=== PATIENT | male | born 1955 | race Caucasian/White ===

== ENCOUNTER 2021-04-09 08:14 | Outpatient (CLI) | payer OTHER, SELFPAY ==
[2021-04-09 20:31] LABS: Hematocrit 42.8 % (42.0-52.0); Hemoglobin 14.3 g/dL (14.0-18.0); Mean Corpuscular HGB Conc 33.4 g/dl (32-36); Mean Corpuscular Hemoglobin 28.7 pg (26-34); Mean Corpuscular Volume 85.8 fl (80-100); Platelet Count Result 186 k/mm3 (150-375); Red Blood Count 4.99 M/mm3 (4.6-6.20); Red Cell Distribution Width 13.7 % (11.5-14.5); White Blood Count 7.7 K/mm3 (4.5-10.0)
[2021-04-09 20:39] LABS: Alanine Aminotransferase 25 U/L (4-50); Albumin Level 4.2 g/dL (3.5-5.1); Alkaline Phosphatase 85 U/L (38-126); Anion Gap 9 mmol/L (8-16); Aspartate Amino Transferase 26 U/L (17-59); Bilirubin,Total 0.4 mg/dL (0.2-1.3); Blood Urea Nitrogen 23 mg/dL (9-20); Calcium 9.2 mg/dL (8.4-10.2); Carbon Dioxide 25 mmol/L (22-30); Chloride 106 mmol/L (98-107); Estimated Glomerular Filt Rate > 60; Glucose 111 mg/dL (65-110); Potassium 4.4 mmol/L (3.4-5.0); Sodium 140 mmol/L (137-145)
[2021-04-09 21:04] LABS: Prostate Specific Antigen 0.7 ng/mL (< OR = 4.0)
[2021-04-15 01:35] LABS: Testosterone Free 82.1 pg/mL (35.0-155.0); Testosterone Total 423 ng/dL (250-1100)
== END 2021-04-09 08:15 | disposition home or self-care (01) ==
LOC: ANHBWCLAB 08:16
PROVIDERS: PCP Family Medicine; Visit Provider Family Medicine
DX: Z12.5 Encounter for screening for malignant neoplasm of prostate (principal); R30.0 Dysuria; M19.90 Unspecified osteoarthritis, unspecified site; E78.5 Hyperlipidemia, unspecified; N40.0 Benign prostatic hyperplasia without lower urinary tract symptoms; I42.1 Obstructive hypertrophic cardiomyopathy; K21.9 Gastro-esophageal reflux disease without esophagitis
CPT/HCPCS: 36415; 80053; 84153; 84402; 84403; 84443; 85027; G0103

== ENCOUNTER → 2021-08-18 07:52 | Outpatient (CLI) | payer OTHER, SELFPAY ==
[2021-08-18 17:21] LABS: SARS-CoV-2 RNA PCR Negative
== END ==
PROVIDERS: PCP Family Medicine; Visit Provider Family Medicine
DX: Z20.822 Contact with and (suspected) exposure to COVID-19 (principal); R53.83 Other fatigue
CPT/HCPCS: C9803; U0003; U0005

== ENCOUNTER 2021-08-18 08:35 | Outpatient (CLI) | payer OTHER, SELFPAY ==
[2021-08-18 19:25] LABS: Hematocrit 45.5 % (42.0-52.0); Hemoglobin 15.1 g/dL (14.0-18.0); Mean Corpuscular HGB Conc 33.2 g/dl (32-36); Mean Corpuscular Hemoglobin 28.4 pg (26-34); Mean Corpuscular Volume 85.5 fl (80-100); Mean Platelet Volume 9.9 fl (7.4-10.4); Platelet Count Result 203 k/mm3 (150-375); Red Blood Count 5.32 M/mm3 (4.6-6.20); Red Cell Distribution Width 13.2 % (11.5-14.5); White Blood Count 7.5 K/mm3 (4.5-10.0)
[2021-08-18 19:46] LABS: Add Urine Microscopic? NO; Appearance Urine Clear (Clear); Bilirubin Urine Negative (Negative); Blood Urine Negative (Negative); Color Urine Yellow (Yellow); Glucose Urine UA Negative (Negative); Ketones Urine Negative (Negative); Leukocyte Esterase Ur Negative LEU/UL (NEGATIVE); Nitrate Urine Negative (Negative); Protein Urine Negative (Negative); Specific Grav Ur 1.027 (1.001-1.035); Urobilinogen Urine Negative mg/dL (<2.0)
[2021-08-18 19:54] LABS: Erythrocyte Sedimentation Rate 1 mm/hr (0-20)
[2021-08-18 19:56] LABS: CRP < 0.5 mg/dL (<1.0)
[2021-08-21 11:26] LABS: Testosterone Total 472 ng/dL (250-1100)
== END 2021-08-18 08:36 | disposition home or self-care (01) ==
PROVIDERS: PCP Family Medicine; Visit Provider Family Medicine
DX: R53.83 Other fatigue (principal)
CPT/HCPCS: 36415; 81003; 82728; 84403; 84443; 85027; 85652; 86140; C9803; U0003; U0005

== ENCOUNTER 2021-09-09 10:34 | Outpatient (CLI) | payer OTHER, SELFPAY ==
--- NOTE | ~2021-09-09 | XR_ITS ---
XR chest 2V DATE: 09/09/2021 10:46 INDICATION: Fatigue TECHNIQUE: PA and lateral views COMPARISON: None FINDINGS: Normal heart size. No hilar or mediastinal enlargement. No pulmonary infiltrate or consolid ation, pleural effusion or pulmonary vascular congestion or pneumothorax. Diffuse idiopathic skeletal hyperostosis of the thoracic spine. IMPRESSION: No active cardiopulmonary disease Reviewed, dictated and finalized at location A. [facility] FLOOR TECH
[2021-09-09 19:21] LABS: Vitamin D 25 Hydroxy 34.7 ng/mL
[2021-09-09 19:34] LABS: Hepatitis B Surface Antigen Negative (Negative)
[2021-09-09 19:39] LABS: HAV RESULT Negative (Negative); Hepatitis B Core IgM Result Negative (Negative)
[2021-09-09 19:51] LABS: Hepatitis C Virus Antibody Negative (Negative)
[2021-09-09 20:06] LABS: Folic Acid 10.2 ng/mL (2.76->20)
[2021-09-10 11:40] LABS: Rapid Plasma Reagin Non-Reactive (NonReactive)
== END 2021-09-09 10:35 | disposition home or self-care (01) ==
LOC: ANHBWCLAB 10:35
PROVIDERS: PCP Family Medicine; Visit Provider Family Medicine
DX: R53.83 Other fatigue (principal)
CPT/HCPCS: 36415; 71046; 80074; 82306; 82607; 82746; 86592

== ENCOUNTER 2021-09-09 14:20 | Emergency (ER) | payer OTHER, SELFPAY ==
--- NOTE | 2021-09-09 14:25 | PC.NURSE ---
pt taken directly to room 18 due to large amount of active bleeding from right side of his face. direct pressure applied and edp informed.
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
[2021-09-09 15:04] VITALS: BP 154/84; PULSE 111; RESP 16; TEMP 36.8; O2SAT 95
[2021-09-09] MEDS: LIDOCAINE/EPINEPHRINE 0.5%/1:200,000 50 ML VIAL (15:14)
[2021-09-09] MEDS: LIDOCAINE HCL 1% LOCAL INJ 20 ML VIAL (15:14)
[2021-09-09 16:15] VITALS: BP 124/74; PULSE 68; RESP 14; TEMP 36.9; O2SAT 98
--- NOTE | 2021-09-09 16:20 | PC.NURSE ---
Patient discharged to home in stable condition with all personal belongings and discharge instructions. Patient to follow up with PCP and plastic surgeon. Patient verbalizes understanding. Spouse at bedside.
== END 2021-09-09 16:21 | disposition home or self-care (01) ==
LOC: ANHED 16:07
PROVIDERS: Emergency Provider Emergency Medicine; PCP Family Medicine
DX: S01.81XA Laceration without foreign body of other part of head, initial encounter (principal); E78.5 Hyperlipidemia, unspecified; I42.1 Obstructive hypertrophic cardiomyopathy; K21.9 Gastro-esophageal reflux disease without esophagitis; N40.0 Benign prostatic hyperplasia without lower urinary tract symptoms; M19.90 Unspecified osteoarthritis, unspecified site; Z79.82 Long term (current) use of aspirin; W31.89XA Contact with other specified machinery, initial encounter
CPT/HCPCS: 12013; 36415; 71046; 80074; 82306; 82607; 82746; 86592; 99283

== ENCOUNTER 2022-06-16 10:39 | Outpatient (CLI) | payer OTHER, SELFPAY ==
--- NOTE | ~2022-06-16 | XR_ITS ---
XR shoulder LT min 2V DATE: 06/16/2022 12:20 INDICATION: Left shoulder pain TECHNIQUE: 4 views COMPARISON: None FINDINGS: There is mild to moderate degenerative change at the left acromioclavicular joint Minimal periarticular spurring is noted at the left glenohumeral joint. No fracture or dislocation, periosteal reaction or bone destruction or abnormal soft tissue calcifica tion is detected. IMPRESSION: Mild glenohumeral osteoarthritis Mild to moderate degenerative change at the left acromioclavicular joint Reviewed, dictated and finalized at location B. [facility]
[2022-06-16 18:48] LABS: Basophils Absolute Auto 0.1 K/mm3 (0.0-0.1); Basophils Percent Auto 0.7 % (0.2-1.2); Eosinophils Absolute Auto 0.1 K/mm3 (0-0.3); Eosinophils Percent Auto 1.2 % (0-4.4); Hematocrit 44.7 % (42.0-52.0); Hemoglobin 15.1 g/dL (14.0-18.0); Immature Granulocyte Absolute 0.02 K/mm3 (0.00-0.031); Immature Granulocyte Percent A 0.3 % (0-0.5); Lymphocytes Absolute Auto 2.37 K/mm3 (0.9-3.2); Lymphocytes Percent Auto 31.3 % (18.3-44.2); Mean Corpuscular HGB Conc 33.8 g/dl (32-36); Mean Corpuscular Hemoglobin 28.8 pg (26-34); Mean Corpuscular Volume 85.1 fl (80-100); Mean Platelet Volume 10.4 fl (7.4-10.4); Monocytes Absolute Auto 0.5 K/mm3 (0.1-0.6); Neutrophils Absolute Auto 4.5 K/mm3 (1.3-6.7); Neutrophils Percent Auto 59.5 % (45.5-73.1); Platelet Count Result 185 k/mm3 (150-375); Red Blood Count 5.25 M/mm3 (4.6-6.20); Red Cell Distribution Width 13.4 % (11.5-14.5); White Blood Count 7.6 K/mm3 (4.5-10.0)
[2022-06-16 19:54] LABS: Alanine Aminotransferase 43 U/L (6-50); Albumin Level 4.3 g/dL (3.5-5.1); Alkaline Phosphatase 78 U/L (38-126); Anion Gap 6 mmol/L (8-16); Aspartate Amino Transferase 65 U/L (17-59); Bilirubin,Total 0.8 mg/dL (0.2-1.3); Blood Urea Nitrogen 20 mg/dL (9-20); Calcium 9.1 mg/dL (8.4-10.2); Carbon Dioxide 29 mmol/L (22-30); Chloride 105 mmol/L (98-107); Cholesterol 164 mg/dL (0-200); Estimated Glomerular Filt Rate > 60; Glucose 104 mg/dL (65-110); HDL Direct 37 mg/dL; Potassium 4.3 mmol/L (3.4-5.0); Sodium 140 mmol/L (137-145); Triglycerides 133 mg/dL (<150)
[2022-06-16 20:06] LABS: LDL Cholesterol Direct 88 mg/dL
== END 2022-06-16 10:40 | disposition home or self-care (01) ==
LOC: ANHBWCLAB 10:40
PROVIDERS: PCP Family Medicine; Visit Provider Family Medicine
DX: M19.012 Primary osteoarthritis, left shoulder (principal); I42.1 Obstructive hypertrophic cardiomyopathy; K21.9 Gastro-esophageal reflux disease without esophagitis; N40.0 Benign prostatic hyperplasia without lower urinary tract symptoms; R53.83 Other fatigue
CPT/HCPCS: 36415; 73030; 80053; 80061; 82607; 84443; 85025; 86038

== ENCOUNTER 2022-12-15 10:23 | Outpatient (CLI) | payer MEDICARE, SELFPAY ==
[2022-12-15 21:15] LABS: Basophils Absolute Auto 0.1 K/mm3 (0.0-0.1); Basophils Percent Auto 0.7 % (0.2-1.2); Eosinophils Absolute Auto 0.2 K/mm3 (0-0.3); Eosinophils Percent Auto 2.2 % (0-4.4); Hematocrit 46.9 % (42.0-52.0); Hemoglobin 15.1 g/dL (14.0-18.0); Immature Granulocyte Absolute 0.02 K/mm3 (0.00-0.031); Immature Granulocyte Percent A 0.3 % (0-0.5); Lymphocytes Absolute Auto 2.14 K/mm3 (0.9-3.2); Mean Corpuscular HGB Conc 32.2 g/dl (32-36); Mean Corpuscular Hemoglobin 28.5 pg (26-34); Mean Corpuscular Volume 88.5 fl (80-100); Mean Platelet Volume 10.3 fl (7.4-10.4); Monocytes Absolute Auto 0.5 K/mm3 (0.1-0.6); Monocytes Percent Auto 6.7 % (2.6-8.5); Neutrophils Absolute Auto 3.9 K/mm3 (1.3-6.7); Neutrophils Percent Auto 58.1 % (45.5-73.1); Platelet Count Result 210 k/mm3 (150-375); Red Cell Distribution Width 13.6 % (11.5-14.5); White Blood Count 6.7 K/mm3 (4.5-10.0)
[2022-12-15 21:24] LABS: Alanine Aminotransferase 30 U/L (6-50); Albumin Level 4.2 g/dL (3.5-5.1); Alkaline Phosphatase 72 U/L (38-126); Anion Gap 3 mmol/L (8-16); Aspartate Amino Transferase 55 U/L (17-59); Bilirubin,Total 0.7 mg/dL (0.2-1.3); Blood Urea Nitrogen 22 mg/dL (9-20); Calcium 8.9 mg/dL (8.4-10.2); Carbon Dioxide 31 mmol/L (22-30); Chloride 105 mmol/L (98-107); Cholesterol 137 mg/dL (0-200); Estimated Glomerular Filt Rate > 60; Glucose 96 mg/dL (65-110); HDL Direct 35 mg/dL; Potassium 4.4 mmol/L (3.4-5.0); Sodium 139 mmol/L (137-145); Triglycerides 196 mg/dL (<150)
[2022-12-15 21:35] LABS: LDL Cholesterol Direct 62 mg/dL
[2022-12-15 21:46] LABS: Hepatitis B Surface Antigen Negative (Negative)
[2022-12-15 21:52] LABS: HAV RESULT Negative (Negative); Hepatitis B Core IgM Result Negative (Negative)
[2022-12-15 22:03] LABS: Hepatitis C Virus Antibody Negative (Negative)
== END 2022-12-15 10:24 | disposition home or self-care (01) ==
PROVIDERS: PCP Family Medicine; Visit Provider Nurse Practitioner
DX: R06.02 Shortness of breath (principal); R74.8 Abnormal levels of other serum enzymes; E78.5 Hyperlipidemia, unspecified; R53.83 Other fatigue
CPT/HCPCS: 36415; 80053; 80061; 80074; 85025

== ENCOUNTER 2023-03-23 09:34 | Day surgery (SDC) | payer MEDICARE, SELFPAY ==
[2023-03-23] VITALS (10 sets, daily range): BP systolic 125–150; BP diastolic 64–86; PULSE 60–72; RESP 12–18; TEMP 36.6–37.3; O2SAT 97–100
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
[2023-03-23] MEDS: ceFAZolin 2 GM/D5W 50 ML 2 GM/50 ML BAG IVPB ×2 (10:02→15:51)
[2023-03-23] MEDS: ENTER PT WEIGHT XX (10:05)
[2023-03-23 10:08] LABS: Basophils Percent Auto 0.6 % (0.2-1.2); Eosinophils Absolute Auto 0.1 K/mm3 (0-0.3); Eosinophils Percent Auto 1.8 % (0-4.4); Hemoglobin 14.7 g/dL (14.0-18.0); Immature Granulocyte Absolute 0.02 K/mm3 (0.00-0.031); Immature Granulocyte Percent A 0.3 % (0-0.5); Lymphocytes Percent Auto 33.6 % (18.3-44.2); Mean Corpuscular HGB Conc 33.4 g/dl (32-36); Mean Corpuscular Hemoglobin 28.5 pg (26-34); Mean Corpuscular Volume 85.4 fl (80-100); Mean Platelet Volume 10.2 fl (7.4-10.4); Monocytes Absolute Auto 0.4 K/mm3 (0.1-0.6); Monocytes Percent Auto 5.6 % (2.6-8.5); Neutrophils Absolute Auto 4.2 K/mm3 (1.3-6.7); Neutrophils Percent Auto 58.1 % (45.5-73.1); Platelet Count Result 192 k/mm3 (150-375); Red Blood Count 5.15 M/mm3 (4.6-6.20); Red Cell Distribution Width 13.3 % (11.5-14.5); White Blood Count 7.2 K/mm3 (4.5-10.0)
[2023-03-23 10:12] LABS: Alanine Aminotransferase 27 U/L (6-50); Albumin Level 4.2 g/dL (3.5-5.1); Alkaline Phosphatase 70 U/L (38-126); Anion Gap 7 mmol/L (8-16); Aspartate Amino Transferase 29 U/L (17-59); Bilirubin,Total 0.7 mg/dL (0.2-1.3); Blood Urea Nitrogen 26 mg/dL (9-20); Calcium 8.9 mg/dL (8.4-10.2); Carbon Dioxide 25 mmol/L (22-30); Chloride 106 mmol/L (98-107); Estimated CRCL calculation 94 ml/min; Estimated Glomerular Filt Rate > 60; Glucose 137 mg/dL (65-110); Potassium 4.1 mmol/L (3.4-5.0); Sodium 138 mmol/L (137-145)
--- NOTE | 2023-03-23 10:13 | PC.NURSE ---
[facility].
[2023-03-23 10:15] LABS: Prothrombin Time 13.3 Seconds (11.1-14.7)
[2023-03-23 10:16] LABS: Partial Thromboplastin Time 29.9 SECONDS (22.3-36.8)
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
[2023-03-23] MEDS: SODIUM CHLORIDE 0.9% IV 1,000 ML 125 ML IV CONT (13:14)
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
--- NOTE | 2023-03-23 15:50 | WPDHPUPDATE1 ---
History and Physical Update Update Date/Time: 03/23/23 15:50 History and Physical has been reviewed, including an updated exam of the patient. There are NO changes in the patient's condition. Risks, benefits, and alternatives have been discussed and questions answered. Patient agrees to proceed with procedure.
[2023-03-23] MEDS: BUPivacaine HCL 0.5% PF 30 ML VIAL 10 ML INFILTRATE (17:40)
[2023-03-23] MEDS: LACTATED RINGERS 1,000 ML 30 ML IV CONT ×2 (17:54)
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
--- NOTE | 2023-03-23 19:21 | SUR.PHASEII ---
Report to the Outpatient Waiting Room, entrance under the green pavilion located off [facility], at time 12:00pm on date 03/24/23. Planned Procedure Time: 2:00pm. Time changes happen often and if your time is changed the preop area will call you the afternoon before. - You and your visitor will be asked to self-screen and do not enter if you have any COVID symptoms. - A mask is optional within the hospital at this time. Patients may have clear liquids (water, carbonated beverages, clear teas, apple juice) until 3 hours prior to surgery (11:00am) with a maximum of 20 ounces. - No food from midnight until time of surgery Take the following medications with a SIP of water the morning of surgery: lexapro, metoprolol, pain pill as needed Please no make-up, nail bruneian, hairspray, perfume, deodorant, or body powder the day of surgery. No jewelry (including any body piercings) or valuables the day of surgery, leave them at home. Please take a shower or bath the night before, or the morning of, surgery with an antibacterial soap. Wear comfortable, loose fitting clothing. Children are encouraged to wear pajamas. - Jewelry must be removed prior to entering the operating room. Rings and piercings that are not removed may be cut off. - The hospital will not accept responsibility for valuables. - Please leave all valuables, including medications, at home the day of surgery. If you are going home after surgery, a licensed vibratory pile driver must drive you home. - NO public transportation without another adult if you receive anesthesia. - We recommend that an adult stay with you for 24 hours following discharge. - We also recommend that you do not drive, make important decision, drink alcoholic beverages, or take any drugs that were not prescribed by your health care provider for at least 24 hours after your discharge time.
== END 2023-03-23 19:19 | disposition home or self-care (01) ==
LOC: ANHED 12:10 → ANHSURGERY 13:09
PROVIDERS: Emergency Provider Emergency Medicine; PCP Family Medicine; Visit Provider Plastic Surgery
PROC: (CPT 11012; principal; 2023-03-23 16:00)
DX: S62.617B Displaced fracture of proximal phalanx of left little finger, initial encounter for open fracture (principal); W32.0XXA Accidental handgun discharge, initial encounter; E78.5 Hyperlipidemia, unspecified; K21.9 Gastro-esophageal reflux disease without esophagitis; N40.0 Benign prostatic hyperplasia without lower urinary tract symptoms; Z79.82 Long term (current) use of aspirin; Z79.51 Long term (current) use of inhaled steroids; Z79.891 Long term (current) use of opiate analgesic
CPT/HCPCS: 11012; 36415; 73130; 80053; 85025; 85610; 85730; 96374; 99199; 99285; A9270; C1713; J0690; J2250; J2704; J3010; J7030; J7120

== ENCOUNTER 2023-03-24 07:13 | Day surgery (SDC) | payer MEDICARE, SELFPAY ==
[2023-03-24 08:49] VITALS: BMI 30.8
--- NOTE | 2023-03-24 09:01 | PC.NURSE ---
Report to the Outpatient Waiting Room, entrance under the green pavilion located off [facility], at time 1200 on date 03/24/23. Planned Procedure Time: 1400. Time changes happen often and if your time is changed the preop area will call you the afternoon before. - You and your visitor will be asked to self-screen and do not enter if you have any COVID symptoms. - A mask is optional within the hospital at this time. Patients may have clear liquids (water, carbonated beverages, clear teas, apple juice) until 3 hours prior to surgery with a maximum of 20 ounces. - No food from midnight until time of surgery Take the following medications with a SIP of water the morning of surgery: ANTIBIOTIC, METOPROLOL, ESCITALOPRAM DO NOT STOP ANY OF YOUR OTHER PRESCRIPTION MEDICATIONS PRIOR TO SURGERY ?EXCEPT THE FOLLOWING Medications to discontinue per physician: N/A - SURGERY TODAY Date to take last dose: N/A Please no make-up, nail [place], hairspray, perfume, deodorant, or body powder the day of surgery. No jewelry (including any body piercings) or valuables the day of surgery, leave them at home. Please take a shower or bath the night before, or the morning of, surgery with an antibacterial soap. Wear comfortable, loose fitting clothing. - Jewelry must be removed prior to entering the operating room. Rings and piercings that are not removed may be cut off. - The hospital will not accept responsibility for valuables. - Please leave all valuables, including medications, at home the day of surgery. If you are going home after surgery, a licensed armored car guard and driver must drive you home. - NO public transportation without another adult if you receive anesthesia. - We recommend that an adult stay with you for 24 hours following discharge. - We also recommend that you do not drive, make important decision, drink alcoholic beverages, or take any drugs that were not prescribed by your health care provider for at least 24 hours after your discharge time. Follow any additional instructions given to you from your surgeon. If you or anyone in your household have experienced Covid symptoms in the past week, please notify your surgeon or the nurse liaison at the phone number below for possible testing. Telephone instructions given to PT - GEMA IRBY and asked if any additional questions and then verbalized understanding. Patient advised to call surgeon office or pre surgery nurse liaison [phone] if any additional questions.
--- NOTE | 2023-03-24 09:43 | ECG_ITS ---
Measurements Intervals [place] Rate: 59 P: 66 MI: 179 QRS: 40 QRSD: 110 T: 118 QT: 375 QTc: 374 Interpretive Statements SINUS BRADYCARDIA VOLTAGE CRITERIA FOR LV T WAVE ABNORMALITY IN HIGH LATERAL LEADS- CONSIDER ISCHEMIA ABNORMAL ECG NO PREVIOUS ECG AVAILABLE FOR COMPARISON Electronically Signed On 03-24-2023 13:21:13 CDT by Sean Amin D.O.
--- NOTE | 2023-03-24 11:32 | WPDHPUPDATE1 ---
History and Physical Update Update Date/Time: 03/24/23 11:32 History and Physical has been reviewed, including an updated exam of the patient. There are NO changes in the patient's condition. Risks, benefits, and alternatives have been discussed and questions answered. Patient agrees to proceed with procedure.
[2023-03-24 12:15] VITALS: BP 117/63; PULSE 63; RESP 20; TEMP 37.1; O2SAT 97
[2023-03-24] MEDS: LACTATED RINGERS 1,000 ML 30 ML IV CONT (12:50)
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
--- NOTE | 2023-03-24 13:19 | SUR.PREOP ---
1200-Pt and aware surgeon delays self ~1hr.
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
== END 2023-03-24 16:04 | disposition home or self-care (01) ==
PROVIDERS: PCP Family Medicine; Visit Provider Plastic Surgery
DX: S62.617B Displaced fracture of proximal phalanx of left little finger, initial encounter for open fracture (principal); W32.0XXA Accidental handgun discharge, initial encounter; R94.31 Abnormal electrocardiogram [ECG] [EKG]; Z53.8 Procedure and treatment not carried out for other reasons
CPT/HCPCS: 93005; 99212; G0463; J7120

== ENCOUNTER 2023-03-25 00:07 | Day surgery (SDC) | payer MEDICARE, SELFPAY ==
[2023-03-25] VITALS (8 sets, daily range): BP systolic 110–140; BP diastolic 60–83; PULSE 57–70; RESP 14–20; TEMP 36.5–36.9; O2SAT 93–100; BMI 29.7
--- NOTE | ~2023-03-25 | XR_ITS ---
XR surgery orthopedic Application of external fixation device of the left fifth finger TECHNIQUE: Fluoroscopy used during Application of external fixation device of the left fifth finger performed by [Ramu Pablo MD] on 03/25/2023. 2 minutes 0 seconds with 6 fluoroscopic images c aptured. ]The FINDINGS: Correlate with procedure note. IMPRESSION: Fluoroscopy used during Application of external fixation device of the left fifth finger surrounding comminuted displaced intra-articular fracture proximal aspect of the fifth proximal phala nx.. Reviewed, dictated and finalized at location B. IMPRESSION: Fluoroscopy used during Application of external fixation device of the left fifth finger surrounding comminuted displaced intra-articular fracture proximal aspect of the fifth proximal phalanx..
--- NOTE | 2023-03-25 07:21 | WPDHPUPDATE1 ---
History and Physical Update Update Date/Time: 03/25/23 07:21 History and Physical has been reviewed, including an updated exam of the patient. There are NO changes in the patient's condition. Risks, benefits, and alternatives have been discussed and questions answered. Patient agrees to proceed with procedure.
--- NOTE | 2023-03-25 08:26 | SUR.PREOP ---
0805-Patient states no change since yesterday's arrival.
[2023-03-25] MEDS: LACTATED RINGERS 1,000 ML 30 ML IV CONT ×2 (08:40→11:57)
--- NOTE | 2023-03-25 08:44 | P.PNAN_ITS ---
Anes - Eval Final PreProcedure Day of Procedure 03/25/23 08:44 Patient weight: overweight Heart: regular rate and rhythm Lungs: clear to auscultation Airway: Mallampati scale class II Neurological: alert and oriented Last oral intake: >/= 8 hours ASA classification: III Emergent: no Anesthetic plan: proceed Anesthesia type and monitoring: general ETT and standard monitoring Results Review: All pre-operative results and documents have been reviewed as part of the pre- operative evaluation. Informed Consent: The patient's anesthetic plan and its attendant risks and benefits were discussed with the patient/family/POA. Questions were solicited and answers provided to the satisfaction of the patient/family/POA.
[2023-03-25] MEDS: LIDO 1%/EPINEPHRINE 1:100,000 20 ML VIAL 10 ML INFILTRATE (09:39)
--- NOTE | 2023-03-25 14:01 | SUR.PHASEII ---
1400 pt meets anesthesia protocol for discharge, waiting for ride
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
== END 2023-03-25 16:30 | disposition home or self-care (01) ==
PROVIDERS: PCP Family Medicine; Visit Provider Plastic Surgery
PROC: (CPT 26735; principal; 2023-03-25 10:00)
DX: S62.617B Displaced fracture of proximal phalanx of left little finger, initial encounter for open fracture (principal); W32.0XXA Accidental handgun discharge, initial encounter
CPT/HCPCS: 26735; 20690; 99199; A9270; J0330; J1100; J1170; J2250; J2405; J2704; J3010; J7120

== ENCOUNTER 2023-04-25 11:38 | Outpatient (CLI) | payer MEDICARE, SELFPAY ==
--- NOTE | ~2023-04-25 | XR_ITS ---
XR hand LT min 3V DATE: 04/25/2023 12:11 INDICATION: Open fracture of proximal phalanx of fifth digit TECHNIQUE: 4 views COMPARISON: 03/23/2023 left hand FINDINGS: There are 2 pins each through the midshaft of the fifth metacarpal bone and the distal shaf t and head of the proximal phalanx of the fifth digit, connected to a nafisa. Severely comminuted fracture of the base and proximal shaft of the proximal phalanx of the fifth digi t is again noted, the proximal aspect of the proximal phalanx shattered with prominent displacement o f numerous fracture fragments.. IMPRESSION: Traction pins and nafisa for severely comminuted probably displaced fracture of the proximal shaft and base of the proximal phalanx of the fifth digit Reviewed, dictated and finalized at location B. IMPRESSION: Traction pins and nafisa for severely comminuted probably displaced fr acture of the proximal shaft and base of the proximal phalanx of the fifth digi t
== END 2023-04-25 11:39 | disposition home or self-care (01) ==
PROVIDERS: PCP Family Medicine; Visit Provider Plastic Surgery
DX: S62.617B Displaced fracture of proximal phalanx of left little finger, initial encounter for open fracture (principal); Z96.7 Presence of other bone and tendon implants
CPT/HCPCS: 73130

== ENCOUNTER 2023-05-05 00:11 | Day surgery (SDC) | payer MEDICARE, SELFPAY ==
[2023-05-02 13:47] VITALS: BMI 31.1
--- NOTE | 2023-05-02 13:53 | PC.NURSE ---
Report to the Outpatient Waiting Room, entrance under the green pavilion located off [facility], at time _1000_ on date _[id number]_. Planned Procedure Time: _1200_. Time changes happen often and if your time is changed the preop area will call you the afternoon before. - You and your visitor will be asked to self-screen and do not enter if you have any COVID symptoms. - A mask is optional within the hospital at this time. Patients may have clear liquids (water, carbonated beverages, clear teas, apple juice) until 3 hours prior to surgery with a maximum of 20 ounces. - No food from midnight until time of surgery Take the following medications with a SIP of water the morning of surgery: __Metoprolol DO NOT STOP ANY OF YOUR OTHER PRESCRIPTION MEDICATIONS PRIOR TO SURGERY ?EXCEPT THE FOLLOWING Medications to discontinue per physician ____Centrum silver Date to take last dose__Take no more till after surgery. Please no make-up, nail [place], hairspray, perfume, deodorant, or body powder the day of surgery. No jewelry (including any body piercings) or valuables the day of surgery, leave them at home. Please take a shower or bath the night before, or the morning of, surgery with an antibacterial soap. Wear comfortable, loose fitting clothing. - Jewelry must be removed prior to entering the operating room. Rings and piercings that are not removed may be cut off. - The hospital will not accept responsibility for valuables. - Please leave all valuables, including medications, at home the day of surgery. If you are going home after surgery, a licensed deliver driver must drive you home. - NO public transportation without another adult if you receive anesthesia. - We recommend that an adult stay with you for 24 hours following discharge. - We also recommend that you do not drive, make important decision, drink alcoholic beverages, or take any drugs that were not prescribed by your health care provider for at least 24 hours after your discharge time. Follow any additional instructions given to you from your surgeon. If you or anyone in your household have experienced Covid symptoms in the past week, please notify your surgeon or the nurse liaison at the phone number below for possible testing. Telephone instructions given to _Patient__and asked if any additional questions and then verbalized understanding. Patient advised to call surgeon office or pre surgery nurse liaison [phone] if any additional questions.
--- NOTE | 2023-05-04 13:18 | WPDANESEPPF ---
Anes - Initial Pre Proc Eval Procedure: Operation Date: 05/05/23 12:00 Proposed Procedures p Removal of External Fixator Left Fifth Finger, Possible Percutaneous Pinning - Ramu Pablo MD Date/Time: 05/04/23 13:18 Surgeon: Ramu Pablo MD Pre Op Diagnosis: fracture of the base,proximal shaft lft 5th finger Patient Data Age: 67 Gender: M Height: 1.75 m Weight: 95.5 kg Allergies Allergy/AdvReac Type Severity Reaction Status Date / Time No Known Allergies Allergy Verified 05/05/23 10:15 Home Medications Medication Instructions Recorded Confirmed Type acetaminophen 500 mg capsule 500 mg PO Q6H PRN fever or pain 09/09/21 05/02/23 Rx #30 caps omeprazole magnesium 20 mg 20 mg PO DAILY #90 tabs 12/01/22 05/02/23 Rx tablet,delayed release (Prilosec OTC) finasteride 5 mg tablet 5 mg PO DAILY #90 tabs 12/25/22 05/02/23 Rx escitalopram oxalate 20 mg tablet 20 mg PO DAILY #90 tabs 02/11/23 05/02/23 Rx dfguvlis-mh-uycfe 300 mcg-K 60 1 tablet PO DAILY 03/24/23 05/02/23 History mcg-lycop 600 mcg-lutein 300 mcg tablet (Centrum Silver Men) atorvastatin 20 mg tablet 20 mg PO DAILY #90 tabs 04/25/23 05/02/23 Rx metoprolol succinate 50 mg 50 mg PO DAILY #90 tabs 04/25/23 05/02/23 Rx tablet,extended release 24 hr meloxicam 15 mg tablet See Rx Instructions .Route 05/04/23 Rx .COMPLEX #90 tabs Patient hx anesthesia problems: none Family hx anesthesia problems: none Results Review: All pre-operative results and documents have been reviewed as part of the pre-operative evaluation. [facility] Past Medical History Medical History (Updated 05/04/23 @ 13:19 by Chandler Atkinson DO) Arthritis BPH (benign prostatic hyperplasia) Cardiomyopathy Chronic GERD Dyslipidemia Dysuria Encounter for long-term (current) use of other medications Family history of osteoporosis Fatigue Fatigue Hypercalcemia Hyperlipidemia Hypertension IHSS (idiopathic hypertrophic subaortic stenosis) Preventative health care SOB (shortness of breath) Surgical History Surgical History H/O hernia repair H/O nasal septoplasty History of carpal tunnel release Family History Family History Mother Myocardial infarction Sibling Cancer H/O heart surgery Grandparent Diabetes mellitus Cerebrovascular accident Cancer Grandparent Cancer Mother Acute myocardial infarction Sibling Family history of malignant neoplasm Social History Social History Smoking status: Never smoker Second hand tobacco smoke exposure: No Alcohol intake: current Alcohol use details: COUPLE TIMES A YEAR Substance use: never Substance use type: does not use Lack of Transportation: No Lack of Food: Never True Current Housing: I Have Housing Concerned About Future Housing: No Difficulty Paying Gas/Electric Bills: No Difficulty Paying for Meds: No Currently Unemployed: No Education: Associate Degree Difficulty w/ Childcare or Family Care: No Living arrangements: with family Spiritual care concerns: No Anes - Eval Final PreProcedure Day of Procedure 05/04/23 13:18 Patient weight: obese Heart: regular rate and rhythm Lungs: clear to auscultation Airway: Mallampati scale class II Neurological: alert and oriented Last oral intake: >/= 8 hours ASA classification: III Emergent: no Anesthetic plan: proceed Anesthesia type and monitoring: general GIVS and standard monitoring Results Review: All pre-operative results and documents have been reviewed as part of the pre-operative evaluation. Informed Consent: The patient's anesthetic plan and its attendant risks and benefits were discussed with the patient/family/POA. Questions were solicited and answers provided to the satisfaction of the patient/family/POA.
--- NOTE | ~2023-05-05 | XR_ITS ---
EXAMINATION: XR surgery orthopedic DATE: 05/05/2023 13:46 INDICATION: Ex fix removal and pinning of the right fifth digit TECHNIQUE: 5 fluoroscopic images of the right fifth digit were obtained during procedure performed by Dr. Pablo. Radiologist was not present for the imaging or procedure. The amount of fluoroscopy time used during this procedure was 5.4 minutes. COMPARISON: 04/25/2023 and 03/23/2023 FINDINGS: Again seen is a comminuted fractures at the base of the left fifth proximal phalanx. The previously p laced external fixation at the left fifth metacarpal and distal aspect of the proximal phalanx been r emoved with subtle residual lucent screw tracks. Interval placement of percutaneous fixation pins ext ending from the dorsal aspect of the head of the fifth metacarpal into the diaphysis to the distal he ad of the proximal phalanx. There are some palmar subluxation axis and of the mid to distal aspect of the proximal phalanx relative to the head of the metacarpal. There is persistent displacement of sev eral bone fragments comprising the proximal aspect of the proximal phalanx. No new fractures identifi ed. Again seen is a prominent subarticular lucency at the head of the third metacarpal. Remaining vis ualized bones of the ulnar side of the left hand are unremarkable. IMPRESSION: 1. Fluoroscopy utilized during removal of prior external fixation and placement of new percutaneous p in fixation across the fifth metacarpophalangeal joint with persistent displacement of the fragments of the comminuted fracture proximal portion of the proximal phalanx. See procedure note for further d etail. Reviewed, dictated and finalized at location A. IMPRESSION: 1. Fluoroscopy utilized during removal of prior external fixation and placement of new percutaneous pin fixation across the fifth metacarpophalangeal joint wi th persistent displacement of the fragments of the comminuted fracture proximal portion of the proximal phalanx. See procedure note for further detail.
--- NOTE | 2023-05-05 07:13 | WPDHPUPDATE1 ---
History and Physical Update Update Date/Time: 05/05/23 07:13 History and Physical has been reviewed, including an updated exam of the patient. There are NO changes in the patient's condition. Risks, benefits, and alternatives have been discussed and questions answered. Patient agrees to proceed with procedure.
[2023-05-05 09:49] VITALS: BP 138/80; PULSE 65; RESP 18; TEMP 36.4; O2SAT 96
[2023-05-05] MEDS: LACTATED RINGERS 1,000 ML 30 ML IV CONT (10:11)
[2023-05-05] MEDS: ACETAMINOPHEN 500 MG TABLET 1000 MG PO (11:52)
[2023-05-05] MEDS: ceFAZolin 2 GM/D5W 50 ML 2 GM/50 ML BAG IVPB (11:56)
--- NOTE | 2023-05-05 12:54 | SUR.OPER ---
2 mg of versed checked out of pyxsis for this patient and given to wilson tony TABLE MAKER
[2023-05-05 13:41] VITALS: BP 123/71; PULSE 58; RESP 16; O2SAT 98
--- NOTE | 2023-05-05 13:58 | P.OP_ITS ---
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 Closed internal c-wire fixation. Surgeon Ramu Pablo MD Flask Carrier Veronica Anesthesia MAC and Local Indications Comminuted fracture of the base of proximal phalanx left 5th finger with non- union. Description of Procedure The patient's left 5th finger with the external fixator was marked with his consent in the holding peter. We discussed primary plans and potential secondary plans again. Has at least 25 degree active range of motion the proximal interphalangeal joint, the metacarpophalangeal joint has not moved. There has been no sign of infection. He was taken to the operating room placed supine on the operating table. He had given 2 g of Ancef IV. A was given mild sedation and the extremity was prepped and draped in usual fashion. The site was examined with the C-arm and the fracture comminution noted. The area was infiltrated with 1% lidocaine with epinephrine. Adequate anesthesia to the finger was obtained. The [employer] external fixator was partially removed, taking out the retention bar. X-ray showed instability of the fracture at that point. Alignment of the fragments is not anatomic. Patient was able to cooperate with active flexion and extension and this demonstrated instability of the proximal shaft. Rotation and lateral angulation were not noted. [place] palmar angulation is evident. We discussed with the operating team and the [employer] rep possible options such as opening the finger and applying bone graft material. Malleable fluid material is available as well as chips. It seemed that better approximation of the displaced fragments would not likely be possible. I was concerned the longer term use of the fixator might lead to infectious complications. Did not seem that it was going to provide us with a functional metacarpophalangeal joint. Having discussed this overall problem with the patient several times, I thought he would be best suited to treatment that would lead to a pseudoarthrosis and moderate range of motion. I elected to place the the finger in the best position of reduction I could obtain and apply 0.045 in C wires from the proximal radial base of the proximal phalanx passing up the shaft to the head. We were able to place 2 such C wires. The seemed to provide satisfactory reduction. Expectation for bony union remains low. This did not improve the range of motion potential for the metacarpophalangeal joint. The IP joints remains the same as before. The pins were cut relatively short, external to the skin and caps applied. Final x-rays were obtained to be certain the pins not enter the proximal interphalangeal joint. A small bandage was applied and the patient was discharged from the operating room to the recovery area.. Estimated Blood Loss -10.0 Tourniquet Time 0 Drains No Packing No Pathology None sent Complications No immediate complications Condition Stable Disposition Same day
[2023-05-05 14:10] VITALS: BP 123/71; PULSE 58; RESP 16
[2023-05-05 14:40] VITALS: BP 118/73; PULSE 50; RESP 16
--- NOTE | 2023-05-05 15:00 | SUR.PHASEII ---
Vital signs stable, IV removed. Patient dressed and waiting to order picker/assembler.
[2023-05-05 15:10] VITALS: BP 124/63; PULSE 52; RESP 16
== END 2023-05-05 15:43 | disposition home or self-care (01) ==
PROVIDERS: PCP Family Medicine; Visit Provider Plastic Surgery
PROC: (CPT 26608; principal; 2023-05-05 12:00)
DX: S62.61 Displaced fracture of proximal phalanx of finger (principal); W32.0XXD Accidental handgun discharge, subsequent encounter; I42.9 Cardiomyopathy, unspecified; N40.0 Benign prostatic hyperplasia without lower urinary tract symptoms; E78.5 Hyperlipidemia, unspecified; I10 Essential (primary) hypertension; K21.9 Gastro-esophageal reflux disease without esophagitis; E66.9 Obesity, unspecified; Z68.30 Body mass index [BMI] 30.0-30.9, adult
CPT/HCPCS: 20694; 26727; 99199; A9270; C1713; J0690; J2250; J2704; J3010; J7120

== ENCOUNTER 2023-06-10 13:39 | Outpatient (CLI) | payer MEDICARE, SELFPAY ==
--- NOTE | ~2023-06-10 | XR_ITS ---
EXAMINATION: XR hand LT min 3V DATE: 06/10/2023 14:35 INDICATION: Comminuted fracture of the left fifth proximal phalanx TECHNIQUE: Posteroanterior, oblique and lateral views of the left hand were obtained. COMPARISON: 04/25/2023 and 05/05/2023 FINDINGS: Again seen is a severely comminuted intra-articular fracture of the proximal third of the left fifth proximal phalanx which remains fixed with a pair of percutaneous pins extending across the head and n billy of the fifth metacarpal through the fragment at the base of the proximal phalanx with one pin ter minating at the distal head of the proximal phalanx and the second and across the proximal interphala ngeal joint and the base of the middle phalanx. There appears to be persistent dorsal and ulnar displ acement of a couple fragments at the ulnar and dorsal base of the proximal phalanx with no clearly de fined smooth proximal articular cortex. There appears to be a small amount of callus formation along the ulnar side of the diaphysis of the distal fragment consistent with interval healing. It is unclea r where there is solid bridging between the main proximal and distal fragments. There are couple luce nt screw tracks at the mid diaphysis of the fifth metacarpal and at the mid to distal aspect of the f ifth proximal phalanx related to a previously removed external fixation. No evident osteolysis or inc reased lucency along the fixation pins to suggest loosening or infection. No other fractures identifi ed. Unchanged prominent indolent appearing lucent lesion with thin sclerotic margins at the head of t he third metacarpal. 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 Absent first d istal phalanx which could be developmental or sequela of prior trauma or surgery. There appears to be hypertrophy of one of the condyles at the head of the proximal phalanx which suggests this may be de velopmental. IMPRESSION: 1. Small amount of callus formation along a severely comminuted intra-articular fracture at the proxi mal aspect of the fifth proximal phalanx which is fixed with a pair of percutaneous pins. Reviewed, dictated and finalized at location A. PATIAL INFORMATION TECHNOLOGIST IMPRESSION: 1. Small amount of callus formation along a severely comminuted intra-articular fracture at the proximal aspect of the fifth proximal phalanx which is fixed w ith a pair of percutaneous pins.
== END 2023-06-10 13:40 | disposition home or self-care (01) ==
LOC: ANHIMG 13:46
PROVIDERS: PCP Nurse Practitioner Adult Health; Visit Provider Plastic Surgery
DX: S62.617G Displaced fracture of proximal phalanx of left little finger, subsequent encounter for fracture with delayed healing (principal)
CPT/HCPCS: 73130

== ENCOUNTER 2023-06-14 10:31 | Outpatient (CLI) | payer MEDICARE, SELFPAY ==
[2023-06-14 20:31] LABS: Prostate Specific Antigen 0.3 ng/mL (< OR = 4.0)
[2023-06-14 21:54] LABS: Hemoglobin A1C 5.4 % (<5.7)
== END 2023-06-14 10:32 | disposition home or self-care (01) ==
LOC: ANHBWCLAB 10:32
PROVIDERS: PCP Family Medicine; Visit Provider Family Medicine
DX: Z12.5 Encounter for screening for malignant neoplasm of prostate (principal); N40.0 Benign prostatic hyperplasia without lower urinary tract symptoms; R73.09 Other abnormal glucose; Z79.899 Other long term (current) drug therapy
CPT/HCPCS: 36415; 83036; 84153; G0103

== ENCOUNTER 2023-06-20 12:36 | Outpatient (CLI) | payer MEDICARE, SELFPAY ==
--- NOTE | ~2023-06-20 | XR_ITS ---
EXAMINATION: XR hand LT min 3V DATE: 06/20/2023 12:55 INDICATION: Comminuted fractures of left fifth proximal phalanx. TECHNIQUE: 4 views of left hand were obtained. COMPARISON: Left hand radiographs 06/10/2023, 04/25/2023, 03/23/2023 FINDINGS: Bone alignment is normal. There is amputation of first distal phalanx. There is a comminute d fracture of proximal aspect of fifth proximal phalanx. The main distal fracture fragment demonstrat es impaction and 4 mm palmar displacement and 5 mm radial displacement. There is incongruence of the proximal articular surface. Fixation is seen with a wire through fifth metacarpal and fifth proximal phalanx. Callus formation is noted. There is mild osteoarthritis of first carpometacarpal joint and t hird metacarpophalangeal joint and some of the interphalangeal joints. IMPRESSION: 1. Healing comminuted fracture of fifth proximal phalanx with pin fixation without change. Reviewed, dictated and finalized at location A. MATIC TESTER IMPRESSION: 1. Healing comminuted fracture of fifth proximal phalanx with pin fixation with out change.
== END 2023-06-20 12:37 | disposition home or self-care (01) ==
PROVIDERS: PCP Family Medicine; Visit Provider Plastic Surgery
DX: S62.617G Displaced fracture of proximal phalanx of left little finger, subsequent encounter for fracture with delayed healing (principal)
CPT/HCPCS: 73130

== ENCOUNTER 2023-08-09 11:00 | Outpatient (RCR) | payer MEDICARE, SELFPAY ==
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
--- NOTE | 2023-06-14 10:12 | OTOPPROGNS ---
Assessment and note entered by Quang Stephen, OTR/Aristides, CHT Therapy Hold 06/14/23 OT Clinical Summary Patient called today to report he followed up with Dr. Rodriguez yesterday and there has been some progress with bone growth. He states the pins will be staying in another 2 weeks and that he is to continue to work on his HEP. Therapy will be put on HOLD for now. Will await new orders after pin removal to resume therapy.
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
--- NOTE | 2023-07-20 12:00 | OTOPPROG ---
Assessment and note entered by ASAD Montalvo/Aristides, CHT Progress Update 07/20/23 Diagnosis healing comminuted fracture of the base of the left 5th phalanx Subjective Information Patient presents today for reassessment after 3 weeks of therapy. He reports reduced sensitivity in the finger, improved strength, and improved flexibility. He reports no big changes in his function. ROM measurements today: - MCP flexion 90 deg. - PIP flexion 80 deg. - DIP flexion 45 deg. - Tip to palm improved from 3 cm gap to 1 cm gap actively. Passively is WFL. - Functional extension of the finger improved by 25 degrees at the MCP joint and 10 degrees at the PIP joint. He continues to have an extension lag overall. Assessment OT Clinical Summary Patient presents today for reassessment after 3 weeks of therapy focused on improving functional ROM and strength of the left hand/small finger. He has made excellent progress with ROM - only 1 cm away from touching the palm when making a fist and extension has improved to functional limits. He is compliant with his HEP. Continued skilled OT indicated to progress HEP, therapeutic exercise, manual therapy, and for continued use of modalities. Plan of Care Interventions Therapeutic Exercise,Manual Therapy,Therapeutic Activities,Hot Pack/Cold Pack,Electrical Stimulation,Check Out for Orthotic/Pr,Paraffin OT Services Indicated Yes Treatment Frequency and 1x/week for 3 weeks Duration These treatments will address the objective and functional deficits as defined above. The patient will be advanced safely and appropriately in order for the patient to progress towards his/her prior level of function. Additional exercises will be introduced and as well as a comprehensive home exercise program upon discharge, if needed, ?to ensure carryover of functional gains achieved in the clinic. This treatment plan has been reviewed and agreement upon by the patient.
--- NOTE | 2023-08-09 11:49 | OTOPDC ---
Assessment and note entered by Quang Stephen, ASAD/Aristides, T Discharge Summary 08/09/23 Diagnosis healing comminuted fracture of the base of the left 5th phalanx Subjective Information Patient reports he isn't feeling as much change in his ROM as he did the first month of therapy. He feels like the sensitivity in the finger is also about the same. ROM and captain/airline pilot strength measurements are the same as they were 3 weeks ago. Measurements below - ROM measurements: - MCP flexion 90 deg. - PIP flexion 80 deg. - DIP flexion 45 deg. - Tip to palm 1 cm gap actively. Passively is WFL. - Gross extension: -10 degrees at the MCP joint, - 15 degrees at the PIP joint. Left captain/airline pilot strength 100 lbs. Right captain/airline pilot strength 107 lbs. Assessment OT Clinical Summary Patient reassessed today after participating in 8 OT treatment sessions focused on regaining functional strength and ROM of the left hand, small finger. He presents with no functional limitations. Tiller Man strength is WFL. ROM has remained unchanged since 3 weeks ago. Reviewed his HEP and he is independent with all materials. Discharging OT today. Plan of Care OT Services Indicated No
== END 2023-08-09 13:34 | disposition home or self-care (01) ==
LOC: ANHOT 11:00
PROVIDERS: PCP Family Medicine; Visit Provider Plastic Surgery
DX: Z47.89 Encounter for other orthopedic aftercare (principal)
CPT/HCPCS: 97018; 97110; 97166

== ENCOUNTER 2023-11-29 13:24 | Outpatient (CLI) | payer MEDICARE, SELFPAY | END 2023-11-29 13:25 | disposition home or self-care (01) | LOC: ANHAUDIO 14:02 | PROVIDERS: PCP Family Medicine; Visit Provider Otolaryngology | DX: H90.3 Sensorineural hearing loss, bilateral (principal); H93.13 Tinnitus, bilateral; J31.0 Chronic rhinitis; H69.93 Unspecified Eustachian tube disorder, bilateral; H65.491 Other chronic nonsuppurative otitis media, right ear; Z97.4 Presence of external hearing-aid | CPT/HCPCS: 92557; 92567 ==

== ENCOUNTER 2024-08-27 12:32 | Outpatient (CLI) | payer MEDICARE, SELFPAY ==
--- NOTE | ~2024-08-27 | XR_ITS ---
EXAMINATION: XR abdomen obstructive series DATE: 08/27/2024 12:46 INDICATION: Constipation, unspecified. Epigastric abdominal pain. TECHNIQUE: Upright and supine views of the abdomen on 3 radiographs were obtained. COMPARISON: None. FINDINGS: There are no dilated loops of bowel. There is a moderate volume of stool in the colon. No f ree intraperitoneal gas. Calcifications in the pelvis are likely phleboliths. IMPRESSION: 1. Normal bowel gas pattern. Reviewed, dictated and finalized at location A. ALT TAMPING MACHINE OPERATOR
== END 2024-08-27 12:33 | disposition home or self-care (01) ==
LOC: MICIMG 12:33
PROVIDERS: PCP Family Medicine; Visit Provider Family Medicine
DX: K59.00 Constipation, unspecified (principal)
CPT/HCPCS: 74019

== ENCOUNTER 2024-08-27 13:24 | Outpatient (CLI) | payer MEDICARE, SELFPAY ==
--- OUTSIDE RECORDS SUMMARY | 2024-08-27 16:01 | XMS_ITS | Clinical Summary ---
Author Organization [facility] Address [address] [place] [id number] Care Team Providers Care Barrel Liner Name Role Phone Unavailable Primary Care Provider Unavailabl e Allergies No known active allergies Medications No known medications Family History Medical History Relation Comments Heart Disease Mother Relation Status Comments Father Alive Mother Social History Tobacco Use Types Packs/Day Years Used Date Smoking Tobacco: Never Smokeless Tobacco: Never Alcohol Use Standard Drinks/Week Comments No 0 (1 standard drink = 0.6 oz pur e alcohol) Sex and Gender Information Value Date Recorded Sex Assigned at Not on file Legal Sex Male 3:11 PM CDT Gender Identity Not on file Sexual Orientation Not on file Last Filed Vital Signs Vital Sign Reading Time Taken Comments Blood Pressure - - Pulse - - Temperature - - Respiratory Rate - - Oxygen Saturation - - Inhaled Oxygen Concentration - - Weight 90.7 kg (200 lb) 02/24/2018 12:01 AM CDT Height 177.8 cm (5' 10 ) 02/24/2018 12:01 AM CDT Body Mass Index 28.7 02/24/2018 12:01 AM CDT Plan of Treatment Health Maintenance Due Date Last Done Comments Colorectal Cancer Screening Colonoscopy (10 Years) 1957 Hepatitis C 1975 DTaP, Tdap and Td Vaccines ( 1 - Tdap) 1976 Zoster Vaccines (1 of 2) 2007 Pneumococcal Vaccine: 65+ Ye ars (1 of 1 - PCV) 2022 COVID-19 Vaccine ( - 2023-2 5 season) 2024 Influenza Adult (#1) 2024 RSV Immunization or 60+ Years (1 - 1-dose 75+ series) 2032 Meningococcal B Vaccine Aged Out No l onger eligible based on patient's age to complete this topic Meningococcal Vaccine Aged Out No kim lupe eligible based on patient's age to complete this topic RSV Immunizations Under 20 Months Aged Out No longer eligible based on patient's age to complete this topic
[2024-08-27 19:10] LABS: Alanine Aminotransferase 34 U/L (6-50); Albumin Level 4.1 g/dL (3.5-5.1); Alkaline Phosphatase 76 U/L (38-126); Anion Gap 8 mmol/L (4-12); Aspartate Amino Transferase 37 U/L (17-59); Bilirubin,Total 0.7 mg/dL (0.2-1.3); Blood Urea Nitrogen 23 mg/dL (9-20); Calcium 9.1 mg/dL (8.4-10.2); Carbon Dioxide 28 mmol/L (22-30); Chloride 105 mmol/L (98-107); Cholesterol 138 mg/dL (0-200); Estimated Glomerular Filt Rate > 60; Glucose 96 mg/dL (65-110); HDL Direct 41 mg/dL; Potassium 4.3 mmol/L (3.4-5.0); Sodium 141 mmol/L (137-145); Triglycerides 115 mg/dL (<150)
[2024-08-27 19:15] LABS: Hemoglobin 14.7 g/dL (14.0-18.0); Mean Corpuscular HGB Conc 33.4 g/dl (32-36); Mean Corpuscular Hemoglobin 28.6 pg (26-34); Mean Corpuscular Volume 85.6 fl (80-100); Mean Platelet Volume 10.6 fl (7.4-10.4); Platelet Count Result 169 k/mm3 (150-375); Red Blood Count 5.14 M/mm3 (4.6-6.20); Red Cell Distribution Width 13.2 % (11.5-14.5); White Blood Count 6.7 K/mm3 (4.5-10.0)
[2024-08-27 19:21] LABS: LDL Cholesterol Direct 84 mg/dL
[2024-08-27 19:28] LABS: Vitamin D 25 Hydroxy 31.4 ng/mL
[2024-08-27 19:36] LABS: Prostate Specific Antigen 0.3 ng/mL (< OR = 4.0)
== END 2024-08-27 13:25 | disposition home or self-care (01) ==
LOC: ANHBWCLAB 13:31
PROVIDERS: PCP Family Medicine; Visit Provider Family Medicine
DX: R30.0 Dysuria (principal); N40.0 Benign prostatic hyperplasia without lower urinary tract symptoms; I42.1 Obstructive hypertrophic cardiomyopathy; E78.5 Hyperlipidemia, unspecified; K21.9 Gastro-esophageal reflux disease without esophagitis; I42.2 Other hypertrophic cardiomyopathy; R53.83 Other fatigue; R74.8 Abnormal levels of other serum enzymes; Z12.5 Encounter for screening for malignant neoplasm of prostate; Z79.899 Other long term (current) drug therapy
CPT/HCPCS: 36415; 80053; 80061; 82306; 82607; 84153; 85027; G0103

== ENCOUNTER 2025-03-05 10:24 | Outpatient (CLI) | payer MEDICARE, SELFPAY ==
--- OUTSIDE RECORDS SUMMARY | 2018-02-13 09:15 | XMS_ITS | Continuity of Care Document ---
Author Organization [facility] Address [address] [place] [address] Phone Care Team Providers Care Ultrasound Specialist Name Role Phone Arden Banda MD, MD Unavailable Unavailable Allergies, Adverse Reactions, Alerts Substance Reaction Status Criticality No Known Allergies Active No Inform ation Medications Medication Instructions Dosage Effective Dates (start - stop) Status Comments escitalopram 20 mg tablet - Active meloxicam 15 mg tablet - Act cale Percocet 5 mg-325 mg tablet take 1 tablet by oral route every 8 hours as needed 1 tablet - Active cyclobenzaprine 10 mg tablet take 1 tablet by oral route 2 times every day 10 MG - Active hydrocodone 5 mg-acetaminophen 325 mg tablet - Active levofloxacin 500 mg tablet - Active methylprednisolone 4 mg tablets in a dose pack - Active tamsulosin 0.4 mg capsule - Active atorvastatin 20 mg tablet - Active metoprolol succinate ER 50 mg tablet,extended release 24 hr - Active atorvastatin 40 mg tablet - Active metoprolol succinate ER 25 mg tablet,extended release 24 hr - Active aspirin 81 mg chewable tablet - Active CYCLOBENZAPRINE HCL (unknown strength) Not Available - Active CENTRUM (unknown strength) Not Available - Active Procedures Procedure Date Office/outpatient visit,est, mod 2017 X-ray Exam Hip Unilat With Pelvis When P erf 2-3 View X-ray exam Lumbar 2-3 views Office/outpatient visit,suzette giron 2017 Advance Directives Directive Yes / No Effective Date File Name No Information Encounters Encounter Description Practice Location Reason(s) For Visit Diagnoses Date Provider Providers Copied on Encounter [facility], [address], [id number], tel:[phone] [facility] lumbar (chief complaint) Other intervertebral disc displacement, lumbosacral region [address] [facility] [address], [id number] , [place]. tel:[phone] Referring Provider: Arden Banda MD S, [address] [place] [address] [address] [facility], [place], [address] . tel:[phone] Office/outpat ient visit,[facility], [address] [facility] [address], [place], [id number], tel:[phone] [facility] [employer] Severe Pain In Right Hip Area (chief complaint) Pain in right hip 8 [facility] [address] [facility], [place] [address], [place], [place], [id number] , . tel: [phone] Family History Family Member Type Diagnosis Age At Onset Father Problem (finding) Depression Mother Problem (finding) Heart Disease Father Problem (finding) Hypertension Brother Problem (finding) Cancer, unknown Father Problem (finding) Stroke Mother Problem (finding) Depression Mother Problem (finding) Diabetes Father Problem (finding) Osteoarthritis Payers Payer name Insurance type Covered libertarian ID Authoriza jesselamar(s) Vinny Jd Monroy [id number] Social History Type Description Quantity Date Captured Comments Alcohol Use Details Unknown Caffeine Use Details Unknown Tobacco Use Status No Information Smoking Status Never smoker Sex Male Vital Signs Date / Time: Height Weight BMI Pulse Rate Blood Pressure Temperature Respiratory Rate Body Surface Area Head Circumference Head Circ. Percentile Wt./Braxton. Percentile BMI percentile Pulse Ox Inhaled Ox 2:11 PM 69.00 in 90.718 kg (200.00 lbs) 29.5 3 kg/m eter (2) Chief Complaint And Reason For Visit From encounter dated '02/13/2018 14:15'. lumbar (chief complaint). Description: Brigido returns for MRI results on his lumbar spine. No changes since last visit. Reason For Referral Reason For Referral No Information Plan Of Treatment Date Type Action Status Referral Ordered: Fluoro For Spine Injection Procedures Appointment date/timeframe: 02/15/2018 ordered Referral Ordered: X-ray exam Lumbar 2-3 views ordered Referral Ordered: X-ray Exam Hip Unilat With Pelvis When Perf 2-3 View RT hip ordered Referral Ordered: MRI lumbar spine Wo Contrast Appointment date/timeframe: 02/10/2018 ordered History Of Present Illness Encounter Date Complaint History Of Prese nt Illness lumbar Brigido returns fo r MRI results on his lumbar spine. No changes since last visit. Severe Pain In Right Hip Area Martinez rhoades is a 62 year old male presents to the office with right groin and posterior buttock pain. The pain has been going on for a couple weeks, no injury. No radiation or tingling in the right leg or foot. He has seen his PCP who referred him to a chiropractor. He was also seen at [facility]. He states the problem began after doing heavy work at home. No prior back or hip issues. The pain is aching, dull, occasional, and stabbing. He is experiencing decreased ROM, difficulty falling asleep, giving way, limping, night pain, and numbness. Descending stairs, standing, and walking aggrevate the symptoms, while rest help relieve the symptoms. We will obtain xrays today. Functional Status Date Functional Assessmen t No Information Instructions Date Instruction Additional Infor mation No Information Assessments Type Assessment Date assessment Other intervertebral disc displa cement, lumbosacral region Patient Care Teams Name Effective Dates (start - stop) Status Members No Information
[2025-03-05 19:01] LABS: Hematocrit 44.7 % (42.0-52.0); Hemoglobin 14.6 g/dL (14.0-18.0); Immature Granulocyte Percent A 0.2 % (0-0.5); Lymphocytes Absolute Auto 2.08 K/mm3 (0.9-3.2); Mean Corpuscular HGB Conc 32.7 g/dl (32-36); Mean Corpuscular Hemoglobin 28.3 pg (26-34); Mean Corpuscular Volume 86.8 fl (80-100); Nucleated Red Blood Cells Absolute Auto 0.000 K/mm3 (0.0-0.012); Nucleated Red Blood Cells Perc 0.0 % (0.0-0.2); Platelet Count Result 203 k/mm3 (150-375); Red Blood Count 5.15 M/mm3 (4.6-6.20); White Blood Count 12.3 K/mm3 (4.5-10.0)
[2025-03-05 19:13] LABS: Alanine Aminotransferase 35 U/L (6-50); Albumin Level 4.2 g/dL (3.5-5.1); Alkaline Phosphatase 69 U/L (38-126); Anion Gap 6 mmol/L (4-12); Aspartate Amino Transferase 50 U/L (17-59); Bilirubin,Total 0.5 mg/dL (0.2-1.3); Blood Urea Nitrogen 25 mg/dL (9-20); Calcium 9.2 mg/dL (8.4-10.2); Carbon Dioxide 27 mmol/L (22-30); Chloride 104 mmol/L (98-107); Estimated Glomerular Filt Rate > 60; Glucose 100 mg/dL (65-110); Potassium 4.6 mmol/L (3.4-5.0); Sodium 137 mmol/L (137-145); Total Protein 6.9 g/dL (6.3-8.2)
[2025-03-05 20:07] LABS: Vitamin B12 425.0 pg/mL (239-931)
== END 2025-03-05 10:25 | disposition home or self-care (01) ==
PROVIDERS: PCP Family Medicine; Visit Provider Family Medicine
DX: N40.0 Benign prostatic hyperplasia without lower urinary tract symptoms (principal); R53.83 Other fatigue; E78.5 Hyperlipidemia, unspecified; I42.2 Other hypertrophic cardiomyopathy; I42.1 Obstructive hypertrophic cardiomyopathy; R30.0 Dysuria; E55.9 Vitamin D deficiency, unspecified
CPT/HCPCS: 36415; 80053; 82306; 82607; 85025